=== PATIENT | male | born 1950 | race Caucasian/White ===

== ENCOUNTER 2018-02-17 13:01 | Emergency (ER) | payer SELFPAY ==
[~2018-02-17] VITALS: Ht 162.6 cm; Wt 100.0 kg
[2018-02-17] MEDS ORDERED: LOSA25TA21 PO (13:11)
[2018-02-17] MEDS ORDERED: BUPIVACAINE HCL/PF 0.25% 10 ML VIAL INJ ONE (13:45)
[2018-02-17] MEDS ORDERED: IBUPROFEN 800 MG TABLET PO ONE (14:00)
[2018-02-17 14:10] VITALS: BP 141/88
[2018-02-17] MEDS ORDERED: BACITRACIN 0.9 GM PACKET OINTMENT TP ONE (14:15)
== END 2018-02-17 14:24 | disposition home or self-care (01) ==
LOC: EMS 13:04
DX: S01.511A Laceration without foreign body of lip, initial encounter (principal); S00.81XA Abrasion of other part of head, initial encounter; S03.2XXA Dislocation of tooth, initial encounter; I10 Essential (primary) hypertension; W01.198A Fall on same level from slipping, tripping and stumbling with subsequent striking against other object, initial encounter; Y93.89 Activity, other specified; Y92.89 Other specified places as the place of occurrence of the external cause; Y99.8 Other external cause status
CPT/HCPCS: 12011; 99283; J3490